=== PATIENT | male | born 1995 | race American Indian/Alaskan Native ===

== ENCOUNTER 2018-08-07 01:26 | Emergency (ER) | payer SELFPAY ==
[2018-08-07 01:29] VITALS: O2SAT 100
[2018-08-07] MEDS ORDERED: Sodium Chloride 0.9% 1,000 ML IV ONE (02:12)
[2018-08-07 02:39] LABS: BASO # 0.1 K/uL (0.0-0.2); BASO % 0.5 % (0.0-2.0); EOS # 0.1 K/uL (0.0-0.7); EOS % 0.8 % (0.0-4.0); HEMOGLOBIN 14.7 g/dL (12.0-18.0); LYMPH # 0.5 K/uL (1.0-4.3); LYMPH % 3.8 % (20.0-40.0); MEAN CELL VOLUME 82.4 fL (80.0-94.0); MONO # 0.4 K/uL (0.0-0.8); MONO % 2.7 % (0.0-10.0); NEUT # 12.9 K/uL (1.8-7.0); NEUT % 92.2 % (50.0-75.0); PLATELET COUNT 193 K/uL (130-400); RBC 5.26 Mil/uL (4.40-5.90); RED CELL DISTRIBUTION WIDTH 12.6 % (11.5-14.5)
[2018-08-07 02:55] LABS: ALB/GLOB RATIO 1.4 (1.0-2.1); ALBUMIN 4.7 g/dL (3.5-5.0); ALT/SGPT 15 U/L (21-72); AST/SGOT 27 U/L (17-59); BLOOD UREA NITROGEN 15 mg/dL (9-20); CALCIUM 9.5 mg/dl (8.6-10.4); GFR NON-AFRICAN AMERICAN > 60; LIPASE 22 U/L (23-300)
[2018-08-07 03:39] LABS: BANDS 1 % (0-2); LYMPHOCYTE 5 % (20-40); MONOCYTE 5 % (0-10); NEUTROPHIL 89 % (50-75); PLATELET ESTIMATE NORMAL (NORMAL); TOTAL CELLS COUNTED 100
--- NOTE | 2018-08-07 04:05 | C.PDOC ---
History Of Present Illness 23 year old male presents to the ED c/o generalized malaise, fever, cough, congestion since yesterday. Patient now also c/o vomiting and decreased appetite. Patient denies rash, headache, diarrhea, SOB, wheezing, recent travel, sick contacts. Time Seen by Provider: 08/07/18 01:48 Chief Complaint (Nursing): Flu-like Symptoms History Per: Patient History/Exam Limitations: no limitations Onset/Duration Of Symptoms: Days (1) Current Symptoms Are (Timing): Still Present Location Of Pain: Throat, Sinus/es, Diffuse Myalgias Sick Contacts (Context): None Associated Symptoms: Fever, Sore Throat, Cough, Sinus Drainage, Myalgias, Nasal Congestion Ear Symptoms: Bilateral: None Recent travel outside of the [place]: No Additional History Per: Patient Past Medical History Reviewed: Historical Data, Nursing Documentation, Vital Signs Vital Signs: Last Vital Signs Temp 98.7 F 08/07/18 01:28 Pulse 66 08/07/18 01:28 Resp 19 08/07/18 01:28 BP 134/87 08/07/18 01:28 Pulse Ox 100 08/07/18 01:28 - Medical History PMH: Asthma Denies: Chronic Kidney Disease Surgical History: No Surg Hx Family History: States: Unknown Family Hx - Social History Hx Alcohol Use: No Hx Substance Use: Yes - Immunization History Hx Tetanus Toxoid Vaccination: No Hx Influenza Vaccination: No Hx Pneumococcal Vaccination: No Review Of Systems Constitutional: Positive for: Fever, Malaise. Negative for: Chills Eyes: Negative for: Vision Change ENT: Positive for: Nose Discharge, Nose Congestion Respiratory: Positive for: Cough. Negative for: Shortness of Breath Gastrointestinal: Positive for: Vomiting. Negative for: Abdominal Pain, Diarrhea Skin: Negative for: Rash Neurological: Negative for: Headache, Dizziness Physical Exam - Physical Exam Appears: Non-toxic, No Acute Distress Skin: Normal Color, Warm, Dry Head: Atraumatic, Normacephalic Eye(s): bilateral: Normal Inspection Ear(s): Bilateral: Normal Oral Mucosa: Moist Throat: Normal, No Erythema, No Exudate Neck: Normal ROM, Supple Chest: Symmetrical Cardiovascular: Rhythm Regular Respiratory: Normal Breath Sounds, No Rales, No Rhonchi, No Wheezing Gastrointestinal/Abdominal: Soft, No Tenderness, No Distention Extremity: Normal ROM, No Tenderness, No Swelling Neurological/Psych: Oriented x3, Normal Speech, Normal Cognition Gait: Steady ED Course And Treatment - Laboratory Results Result Diagrams: 08/07/18 02:31 08/07/18 02:31 Lab Results: Total Bilirubin 0.8 mg/dL (0.2-1.3) 08/07/18 02:31 AST 27 U/L (17-59) 08/07/18 02:31 ALT 15 U/L (21-72) L 08/07/18 02:31 Alkaline Phosphatase 82 U/L (38-126) 08/07/18 02:31 Total Protein 8.0 g/dL (6.3-8.3) 08/07/18 02:31 Albumin 4.7 g/dL (3.5-5.0) 08/07/18 02:31 Globulin 3.3 gm/dL (2.2-3.9) 08/07/18 02:31 Albumin/Globulin Ratio 1.4 (1.0-2.1) 08/07/18 02:31 Lipase 22 U/L (23-300) L 08/07/18 02:31 O2 Sat by Pulse Oximetry: 100 (On RA) Pulse Ox Interpretation: Normal Progress Note: Plan: - Labs. - IV fluids. - Toradol 30 mg IVP. - Zofran 4 mg IVP. - Influenza A B. - UA. Patient requests a full work up, stating he does not feel good. Patient reports improvement after medications were given . Patient advised to follow up with PMD. Disposition Counseled Patient/Family Regarding: Diagnosis, Need For Followup, Rx Given - Disposition Referrals: 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 - Scribe Statement The provider has reviewed the documentation as recorded by the Scribe Markus Coyle All medical record entries made by the Scribe were at my direction and personally dictated by me. I have reviewed the chart and agree that the record accurately reflects my personal performance of the history, physical exam, medical decision making, and the department course for this patient. I have also personally directed, reviewed, and agree with the discharge instructions and disposition.
[2018-08-07 04:44] LABS: URINE BILIRUBIN NEGATIVE (NEGATIVE); URINE BLOOD NEGATIVE (NEGATIVE); URINE CLARITY Clear (Clear); URINE COLOR Yellow (YELLOW); URINE GLUCOSE (UA) NORMAL (Normal); URINE LEUKOCYTE ESTERASE TRACE Leu/uL (Negative); URINE PROTEIN 1+ mg/dL (NEGATIVE)
[2018-08-07 05:00] VITALS: BP 122/62; PULSE 64; RESP 18; TEMP 98.4
== END 2018-08-07 05:35 | disposition home or self-care (01) ==
LOC: C.ER 01:26
DX: B34.9 Viral infection, unspecified (principal)
CPT/HCPCS: 80053; 81001; 83690; 85025; 87804; 96361; 96374; 96375; 99284; J1885; J2405; J7030